=== PATIENT | male | born 1985 | race Caucasian/White ===

== ENCOUNTER 2018-07-18 10:29 | Emergency (ER) | payer MEDICAID, SELFPAY ==
[2018-07-18 10:30] VITALS: BP 116/81; PULSE 82; RESP 16; TEMP 36.7; O2SAT 98; BMI 22.1
[2018-07-18] MEDS: Naproxen 500 MG Tablet PO (11:19)
--- NOTE | 2018-07-18 11:33 | ED.VISSUMM ---
- ER Visit Summary Date of Service: 07/18/18 Chief Complaint: Right thumb pain paresthesia History of Present Illness: The patient is a 33 M [id number] presented increasing right thumb and paresthesia past week. 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 No falls or direct injuries. No previous similar symptoms in the past. No history of acute kidney injury or gastric ulcers. Physical Examination: General: Alert and oriented ?3, no acute distress HEENT: Normocephalic, atraumatic. Moist mucosa membranes Neck: supple, nontender. Negative Spurling's. Cardiovascular: Regular rate and rhythm, no murmurs Respiratory: Normal breath sounds, symmetric, no distress Abdomen: Soft, nontender, nondistended Extremities: Right upper extremity: No elbow pain, negative Tinel's. Wrist examination mild positive Tinel's negative Phalen's. Negative Dulce's of the thumb. Decreased basket hand braider strength of the hand. Neuro: no focal neurological deficits. Test Results: [] Emergency Department Course and Treatment: Patient exam concerns for carpal tunnel syndrome with decreased basket hand braider strength due to paresthesias to the thumb, will provide a thumb spica for rest. Started on naproxen NSAID therapy. Given follow-up with orthopedics. Patient did not want to file as Worker's Comp at this time. Treatment Plan: [] Disposition: Discharge Impression: Right carpal tunnel syndrome This note was generated with [employer] dictation software. It may contain incorrect words, spelling, and punctuation that were not noted in review of the chart prior to signing ED Disposition - Plan for ED Patient: Disposition: Home or Assisted Living Chief Complaint: Upper Extremity Injury Diagnosis: Right carpal tunnel syndrome Instructions: ED Carpal Tunnel Prescriptions: Naproxen [Naprosyn] 500 mg PO BID PRN #20 tablet Referrals: Care Physician,No Primary [Primary Care Provider] - Karla Estrella DO [STAFF PHYSICIAN] - 3-5 Days
--- NOTE | 2018-07-18 11:36 | ED.DCSUM_ITS ---
- ER Visit Summary Date of Service: 07/18/18 Chief Complaint: Right thumb pain paresthesia History of Present Illness: The patient is a 33 M [id number] presented increasing right thumb and paresthesia past week. 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 No falls or direct injuries. No previous similar symptoms in the past. No history of acute kidney injury or gastric ulcers. Physical Examination: General: Alert and oriented ?3, no acute distress HEENT: Normocephalic, atraumatic. Moist mucosa membranes Neck: supple, nontender. Negative Spurling's. Cardiovascular: Regular rate and rhythm, no murmurs Respiratory: Normal breath sounds, symmetric, no distress Abdomen: Soft, nontender, nondistended Extremities: Right upper extremity: No elbow pain, negative Tinel's. Wrist examination mild positive Tinel's negative Phalen's. Negative Dulce's of the thumb. Decreased electrical engineering technologist strength of the hand. Neuro: no focal neurological deficits. Test Results: [] Emergency Department Course and Treatment: Patient exam concerns for carpal tunnel syndrome with decreased electrical engineering technologist strength due to paresthesias to the thumb, will provide a thumb spica for rest. Started on naproxen NSAID therapy. Given follow-up with orthopedics. Patient did not want to file as Worker's Comp at this time. Treatment Plan: [] Disposition: Discharge Impression: Right carpal tunnel syndrome This note was generated with [employer] dictation software. It may contain incorrect words, spelling, and punctuation that were not noted in review of the chart prior to signing ED Disposition - Plan for ED Patient: Disposition: Home or Assisted Living Chief Complaint: Upper Extremity Injury Diagnosis: Right carpal tunnel syndrome Instructions: ED Carpal Tunnel Prescriptions: Naproxen [Naprosyn] 500 mg PO BID PRN #20 tablet Referrals: Care Physician,No Primary [Primary Care Provider] - Karla Estrella DO [STAFF PHYSICIAN] - 3-5 Days
== END 2018-07-18 11:36 | disposition home or self-care (01) ==
PROVIDERS: Emergency Provider Emergency Medicine
DX: G56.01 Carpal tunnel syndrome, right upper limb (principal); K21.9 Gastro-esophageal reflux disease without esophagitis; Z72.0 Tobacco use
CPT/HCPCS: 99283

== ENCOUNTER → 2018-08-11 15:11 | Outpatient (CLI) | payer MEDICAID, SELFPAY ==
--- NOTE | 2018-08-11 15:13 | RAD_ITS ---
STUDY: X-RAY - RIGHT HAND REASON FOR EXAM: Male, 33 years old. Pain TECHNIQUE: 3 view(s) of the hand. COMPARISON: None. FINDINGS: Normal radiocarpal articulation. Normal distal radioulnar joint. Normal visualized carpal bones. Normal carpal articulations Normal carpometacarpal articulation of the thumb. Normal second through fifth carpometacarpal joints. Normal metacarpi. Normal metacarpophalangeal joint of the thumb. Normal interphalangeal joint of the thumb. Normal proximal and distal phalanges of the thumb. Normal metacarpophalangeal joints of the second through fifth fingers. Normal proximal and distal interphalangeal joints of the second through fifth fingers. Normal phalanges of the second through fifth fingers. The soft tissue structures are unremarkable. RAD/Hand Min 3 Views IMPRESSION: Normal x-ray examination of the hand. Electronically Signed: Renzo Bosch MD at 14:57 EDT , Service support ,
== END ==
PROVIDERS: Referring Provider Physician Assistant; Visit Provider Physician Assistant
DX: M79.641 Pain in right hand (principal)
CPT/HCPCS: 73130

== ENCOUNTER 2019-07-17 13:00 | Emergency (ER) | payer MEDICAID, SELFPAY ==
[2019-07-17 13:01] VITALS: BP 136/83; PULSE 71; RESP 16; TEMP 36.4; O2SAT 97; BMI 24.3
--- NOTE | 2019-07-17 13:18 | ED.DCSUM_ITS ---
History of Present Illness Chief Complaint: GI Bleed Informant: Patient Onset: Days Current Severity: Mild Narrative: Patient complains complaining of intermittent rectal bleeding for days that he has a history of the same for over 7 years, he is been seen in the past by outpatient providers gastroenterology or surgeries had a colonoscopy he was told at one point time that he could have inflammatory bowel disease such as Crohn's or ulcerative colitis, he did not follow-up with his outpatient providers. He usually simply waits until the bleeding goes away he presents the em department today because he is indicates he is in between primary care providers and does not have a physician for which she can follow-up he is eating and drinking well he has no other complaints other than report the third toe right foot is slightly irritated no trauma he would like a referral to have that toe checked Past Medical History - Allergies and Home Meds Allergies/Adverse Reactions: Allergies No Known Allergies Allergy (Verified 08/11/18 15:07) Primary Care Physician: Care Physician,No Primary [Primary Care Provider] - Past Medical History: - - Includes all of the above Smoking Status: Current every day smoker Review of Systems General: Denies: Chills, Fever, Sweats Eyes: Denies: Visual changes - bilaterally, Diplopia ENT: Denies: Rhinorrhea, Sore throat Cardiovascular: Denies: Chest pain, Palpitations Respiratory: Denies: Dyspnea, Cough, Dyspnea on exertion Gastrointestinal: Reports: Hematochezia. Denies: Abdominal pain, Nausea, Vomiting, Diarrhea, Melena Genitourinary: Denies: Dysuria, Hematuria, Frequency Musculoskeletal: Denies: Back pain, Extremity Pain Skin: Denies: Rash, Wounds Neurological: Denies: Headache, Weakness, Numbness Physical Exam Vital Signs/Narrative: Vital Signs Temp Pulse Resp BP Pulse Ox 07/17/19 13:01 97.5 F L 71 16 136/83 H 97 General: Well nourished, Well developed, No Acute Distress Head: Normocephalic, Atraumatic Eyes: Perrl, EOMI ENT: Moist mucous membranes, No rhinorrhea Neck: Supple, Nontender Cardiovascular: Regular rate, Regular rhythm, No murmurs Respiratory: No distress, CTA bilaterally, Chest nontender Abdomen: Soft, Nontender, Nondistended, Normal bowel sounds Back: Nontender, Normal Inspection Extremities: Nontender, No edema Skin: Normal color, No rash Neurological: Alert, Oriented x3, Cranial nerves II-XII grossly intact, Normal Strength, Normal Sensation Psychological: Normal affect, Normal Mood Diagnostic/Tx/Re-eval - Medical Decision Making His physical exam is unremarkable his vital signs are normal, he refused rectal exam, the right third toe there may be a small callus involving the skin there is no signs of infection or trauma and he assures me is had no trauma had a long conversation with the patient, I discussed the lung differential with him, we discussed rectal exam, he declined breast exam declined any type of an ED work- up declined labs blood tests etc. he simply wanted the referral, at this time he is referred to primary care, and [place] [facility] on-call and to podiatry and he will return for change in symptoms Home stable declined ED work-up Impression final intermittent rectal bleeding ED Disposition - Plan for ED Patient: Instructions: RECTAL BLEED, Stable Referrals: Care Physician,No Primary [Primary Care Provider] - Leif Ryder [NON-STAFF] - Howard Sheppard MD [STAFF PHYSICIAN] - Deion Piedra DPM [STAFF PHYSICIAN] -
== END 2019-07-17 13:42 | disposition home or self-care (01) ==
LOC: ED 13:28
PROVIDERS: Emergency Provider Emergency Medicine
DX: K62.5 Hemorrhage of anus and rectum (principal); F17.200 Nicotine dependence, unspecified, uncomplicated
CPT/HCPCS: 99282

== ENCOUNTER → 2019-07-22 14:41 | Outpatient (CLI) | payer MEDICAID, SELFPAY ==
[2019-07-22 14:31] VITALS: BMI 24.3
[2019-07-22 15:02] LABS: Hematocrit 43.1 % (40-54); Hemoglobin 14.1 g/dL (13.0-16.5); Mean Corp Hgb Conc 32.7 g/dL (32-36); Mean Corpuscular Hgb 29.1 pg (27.0-32.0); Mean Corpuscular Volume 88.9 fL (80-94); Mean Platelet Vol. 9.3 fl (6.2-12.0); Platelet Count 222 K/mm3 (150-450); RBC Distribution Width CV 12.2 % (11.6-14.6); Red Blood Count 4.85 M/mm3 (4.6-6.2); White Blood Count 5.9 K/mm3 (4.4-11.0)
[2019-07-22 15:16] LABS: Iron 108 ug/dL (65-175); Iron Binding Capacity,Total 348 ug/dL (250-450)
== END ==
PROVIDERS: Referring Provider Surgery; Visit Provider Surgery
DX: K62.5 Hemorrhage of anus and rectum (principal)
CPT/HCPCS: 36415; 83540; 83550; 85027

== ENCOUNTER 2019-07-26 09:46 | Day surgery (SDC) | payer MEDICAID, SELFPAY ==
[2019-07-22 14:31] VITALS: BMI 24.3
[2019-07-26] VITALS (7 sets, daily range): BP systolic 92–117; BP diastolic 45–66; PULSE 16–77; RESP 15–16; TEMP 36.4–36.9; O2SAT 99–100; BMI 21.0
[2019-07-26] MEDS: Lactated Ringers 1,000 ML 100 ML IV ×2 (10:19→12:04)
--- NOTE | 2019-07-26 10:19 | PCM.HP.BLA ---
Problem List (1) Rectal bleeding Status: Acute History and Physical Date of Admission: 07/26/19 Intake Vital Signs 07/22/19 Body Mass Index (BMI) 24.3 07/22/19 Height 5 ft 8 in 07/22/19 Weight: 160 lb 07/22/19 Body Mass Index (BMI) 24.3 07/22/19 Blood Pressure 111/76 07/22/19 Blood Pressure Location Rt brachial 07/22/19 Respiratory Rate 16 07/22/19 Pulse Rate 69 07/22/19 Pulse Source Monitor 07/22/19 Temperature 98.5 F 07/22/19 Temperature Source Oral 07/22/19 Pulse Ox 95 07/22/19 Oxygen Delivery Method room air Intake Visit Reasons: [facility] ER FU Rectal Bleeding Engineering Drawings Checker Required: No Is patient in pain?: No Allergies No Known Allergies Allergy (Verified 07/22/19 14:31) Medications Naproxen [Naprosyn] 500 mg PO BID PRN #20 tab 07/18/18 [Rx Confirmed 07/22/19] Omeprazole [Prilosec] 20 mg PO DAILY 07/18/18 [History Confirmed 07/22/19] PFSH Medical History Fatigue (Acute) Bleeding (Acute) Acid reflux (Acute) Abdominal pain (Acute) Sleep apnea (Acute) Arthritis (Acute) Back pain (Acute) Bloody stool (Acute) Crohn's disease (Acute) Asthma (Acute) Hemorrhoids (Acute) Surgical History H/O colonoscopy (Acute) History of tonsillectomy (Acute) Family History Mother Breast cancer Social History (Updated 07/22/19 @ 15:14 by Howard Sheppard MD) Smoking Status: Current every day smoker second hand exposure: Yes alcohol intake: never substance use type: does not use caffeine: Yes what type of physical activity do you participate in: walking frequency: 5-6 times per week HPI HPI HPI: ALIYAH CANTU, is a 34 M who presents to the office today for HPI HPI Surgical H&P: Yes HPI: ALIYAH CANTU, is a 34 M who presents to the office today for rectal bleeding. The patient reports that he has been having dark and bright red blood per rectum. The patient notes that he had a colonoscopy in 2011 in which bleeding was found he never followed up. He said last week he had several episodes of dark and bright red blood. He came to the emergency room but refused rectal exam or work-up. He says he has been having weight loss and abdominal cramping as well. ROS General General: Yes weight change (Weight loss) and fatigue Musc Musculoskeletal: Yes back problems and arthritis Cardio Cardiovascular: No murmur, pacemaker, heart disease, atrial fibrillation, high blood pressure, heart attack, heart stent, palpitations, shortness of breat with exertion or chest pain Psych Psychiatric: No depression or anxiety Resp Respiratory: No shortness of breath, Yes sleep apnea, No cough, No COPD, No asthma, No emphysema, No wheezing Gastro Gastrointestinal: Yes abdominal pain, No nausea or vomiting, No diarrhea, No constipation, Yes blood in stool, Yes acid reflux, Yes hemorrhoids, No ulcers, No gallbladder problem, No black,tarry stools James Hematologic: No blood thinners, Yes bleeding Exam Const General: cooperative Orientation: alert, oriented x3 Resp Effort & Inspection: normal respiratory effort Auscultation: clear to auscultation bilaterally Cardio Rate: regular rate Rhythm: regular rhythm Heart Sounds: no murmurs GI Inspection: non-distended Palpation: soft, nontender Assessment & Plan Problems 1. Rectal bleeding K62.5 Plan The patient is having bright and dark blood per rectum. He reports weight loss as well. I recommend EGD and colonoscopy. I will also check a CBC and iron studies. I explained endoscopy in detail to the patient. I explained the risks including but not limited to stroke or heart attack with anesthesia, perforation of the GI tract, bleeding, infection. I explained that any of these could necessitate further emergency surgery. The patient understands and all questions were answered sufficiently. The patient wishes to proceed with procedure. Howard Sheppard MD Pager: [facility] [address] [place] [address], [address] [place] [address] Office:
--- NOTE | 2019-07-26 11:43 | OP.ENDO_ITS ---
07/26/2019 No Primary Care Physician Re : Upper GI endoscopy procedure for aCrson Clifton Dear Care Physician This procedure was performed on Friday, July 26, 2019. My impressions and recommendations are as follows: Impressions : - Normal esophagus. - Normal stomach. - Normal examined duodenum. - No specimens collected. Recommendations : - Discharge patient to home. - Resume previous diet. - Continue present medications. My findings are described in the full procedure note, which is enclosed. If I can be of further assistance, please feel free to contact me at Doctor phone number(s): , Work: . Sincerely, Howard Sheppard MD 07/26/2019 11:42:57 AM This report has been signed electronically.
--- NOTE | 2019-07-26 11:44 | OP.ENDO_ITS ---
07/26/2019 No Primary Care Physician Re : Colonoscopy procedure for Carson Clifton Dear Care Physician This procedure was performed on Friday, July 26, 2019. My impressions and recommendations are as follows: Impressions : - The entire examined colon is normal on direct and retroflexion views. - No specimens collected. Recommendations : - Discharge patient to home. - Resume previous diet. - Continue present medications. - Repeat colonoscopy at age 49 for screening purposes. My findings are described in the full procedure note, which is enclosed. If I can be of further assistance, please feel free to contact me at Doctor phone number(s): , Work: . Sincerely, Howard Sheppard MD 07/26/2019 11:44:30 AM This report has been signed electronically.
== END 2019-07-26 12:56 | disposition home or self-care (01) ==
LOC: EN 09:48 → AC 09:50
PROVIDERS: Family Provider Family Medicine; PCP Family Medicine; Referring Provider Surgery; Visit Provider Surgery
PROC: 0DJD8ZZ Inspection of Lower Intestinal Tract, Via Natural or Artificial Opening Endoscopic (ICD-10-PCS; CPT 45378; principal; 2019-07-26 10:55)
DX: K92.1 Melena (principal); K21.9 Gastro-esophageal reflux disease without esophagitis; F17.200 Nicotine dependence, unspecified, uncomplicated
CPT/HCPCS: 43235; 45378; J7120; J2405

== ENCOUNTER 2020-06-21 11:45 | Emergency (ER) | payer MEDICAID, SELFPAY ==
[2019-07-26 10:12] VITALS: BMI 21.0
[2020-06-21 11:46] VITALS: BP 122/73; PULSE 95; RESP 16; TEMP 36.4; O2SAT 98; BMI 24.3
--- NOTE | 2020-06-21 11:58 | ED.DCSUM_ITS ---
- ER Visit Summary Date of Service: 06/21/20 Chief Complaint: Cough, sinus infection, headache History of Present Illness: The patient is a 35 M who presents with cough, sore throat, sinus infection headache. Symptoms started yesterday. He states he feels some scratchiness in his throat. He has had a slightly productive cough as well. He has a lot of nasal congestion. He also had a headache last night. He admitted to some stomachache but it only lasted about an hour. He took some Tylenol at home. No documented fevers. He does admit to some body aches and sweats. No exposure to anybody with coronavirus. He is a smoker. Physical Examination: Vital signs reviewed. HEENT exam unremarkable. Heart is regular rate and rhythm without murmurs. Lungs are clear to auscultation. Abdomen is soft and nontender. Extremities reveal no edema. Skin exam normal. Neurologic exam normal. Test Results: Coronavirus test will be sent out Emergency Department Course and Treatment: The patient overall looks well. His vital signs are normal. He will have a coronavirus test which we will send out. I will give him Mucinex D for his symptoms at home. He will follow-up with his PCP. Treatment Plan: [] Disposition: Discharge Impression: URI This note was generated with [employer] dictation software. It may contain incorrect words, spelling, and punctuation that were not noted in review of the chart prior to signing ED Disposition - Plan for ED Patient: Disposition: Home or Assisted Living Instructions: ED Upper Resp Infec No Abx Tx Prescriptions: Guaifenesin/Pseudoephedrne HCl [Mucinex D ER 600-60 mg Tablet] 1 ea PO BID #14 tab.er.12h Transmission Status: Pending to [facility]30 Referrals: Deion Pro MD [Primary Care Provider] -
== END 2020-06-21 12:15 | disposition home or self-care (01) ==
LOC: ED 12:09
PROVIDERS: Emergency Provider Emergency Medicine; PCP Family Medicine
DX: J06.9 Acute upper respiratory infection, unspecified (principal); F17.200 Nicotine dependence, unspecified, uncomplicated
CPT/HCPCS: 87635; 99282; C9803; U0003

== ENCOUNTER 2022-08-12 14:42 | Emergency (ER) | payer MEDICAID, SELFPAY ==
[2022-08-12 14:43] VITALS: BP 149/72; PULSE 99; RESP 14; TEMP 36.2; O2SAT 99; BMI 26.6
--- NOTE | 2022-08-12 15:28 | EDS_ITS ---
HPI History of Present Illness Chief Complaint: Abscess Narrative Narrative: 37-year-old male with rectal pain x2 weeks. He states he believes he has a hemorrhoid. He was seen in urgent care this week and was referred to Dr. Osuna. The concern was a thrombosed hemorrhoid. Dr. Osuna states that it was not a thrombosed hemorrhoid and recommended a cream that was topical for him. He states he is not getting relief from this. He describes sharp pain in his rectum when he tries to defecate. He denies any black or bloody stools. Denies trauma. He does state that when he tries to urinate it is difficult and he gets a lot of rectal spasms. He has no history of prostate issues. He denies black or bloody stools. PFSH PFSH Medical History Abdominal pain Acid reflux Arthritis Asthma Back pain Bleeding Bloody stool Crohn's disease Fatigue Hemorrhoids Sleep apnea Allergy/AdvReac Type Severity Reaction Status Date / Time No Known Allergies Allergy Verified 08/12/22 14:43 Family History Mother Breast cancer Surgical History H/O colonoscopy History of tonsillectomy Social History Smoking Status: Current every day smoker tobacco type: cigarettes second hand exposure: Yes alcohol intake: never substance use type: does not use caffeine: Yes what type of physical activity do you participate in: walking frequency: 5-6 times per week EXAM Physical Exam Const Vital Signs: 08/12/22 14:43 Temperature 97.2 F L Temperature Source Temporal Pulse Rate 99 Respiratory Rate 14 Blood Pressure 149/72 H Blood Pressure Mean 97 Pulse Ox 99 Oxygen Delivery Method Room Air Positive well nourished General Appearance ED: NAD HEENT Reports moist mucous membranes Eyes PERRL and EOMs intact bilaterally Neck no lymphadenopathy Resp normal respiratory effort Auscultation: Negative for rales, rhonchi or wheezes Cardio regular rate and regular rhythm GI normal to inspection, nondistended, normoactive bowel sounds Narrative: Tenderness to palpation of the left knee area normal rectal area and into the left gluteal fold. No focal abscess is noted. No cellulitic change. Neuro oriented x3 and CN's II-XII intact bilaterally Sensorium / Orientation: alert Psych mental status grossly normal Skin no rashes or lesions noted and no wounds MDM MDM MDM Narrative Medical decision making narrative: Patient presenting with rectal pain. This does appear to be a longstanding issue which is chronic and intermittent. He has had colonoscopies performed as an outpatient in which she states he had biopsies which showed it was not Crohn's disease but was told that it could return and could be Crohn's disease. He had a colonoscopy in [address] Ramirez which showed inflammation. No biopsies were taken at that point. Patient saw Dr. Osuna earlier this week and was put on a topical cream for hemorrhoids. On examination I do not see any visible hemorrhoids and especially do not see a thrombosed hemorrhoid. I obtained blood work and his CBC and BMP are normal. Urinalysis is negative for infection. CT of the abdomen pelvis with IV contrast shows concern for proctitis. I spoke with Dr. Thomas who is on-call for GI and he reviewed the CT and noted that in his history he has had some information. He stated that the patient would need follow-up and could see him in follow-up. He recommended hydrocortisone suppositories 30 mg IN 3 times daily x21 days and following this to start mesalamine suppositories 1000 mg twice daily. He will be given BNO suppositories to help with his pain. Return precautions are discussed. Dr. Thomas did request an ANCA be tested prior to discharge and this was ordered. This will not return today. Impression: 1. Rectal pain 2. Proctitis Lab Data Attestation: I reviewed the patient's lab results. Labs: Laboratory Results - last 24 hr 08/12/22 08/12/22 08/12/22 15:36 15:36 15:45 WBC 6.5 RBC 5.12 Hgb 15.0 Hct 44.5 MCV 86.9 MCH 29.3 MCHC 33.7 RDW Std Deviation 40.4 RDW Coeff of Key[place] 12.8 Plt Count 271 MPV 9.6 Immature Gran % (Auto) 0.300 Neut % (Auto) 52.4 Lymph % (Auto) 33.4 [place] % (Auto) 9.4 Eos % (Auto) 3.1 Baso % (Auto) 1.4 H Absolute Neuts (auto) 3.4 Absolute Lymphs (auto) 2.16 Nucleated RBC % 0 Sodium 140 Potassium 3.7 Chloride 104 Carbon Dioxide 29.0 Anion Gap 7 BUN 15 Creatinine 0.76 Estim Creat Clear Calc 127.50 Est GFR (MDRD) Af Amer 146 Est GFR (MDRD) Non-Af 121 BUN/Creatinine Ratio 19.6 Glucose 96 Calcium 9.2 Urine Color Yellow Urine Clarity Clear Urine pH 6.0 Ur Specific [place] 1.015 Urine Protein Negative Urine Glucose (UA) Normal Urine Ketones Negative Urine Occult Blood Negative Urine Nitrite Negative Urine Bilirubin Negative Urine Urobilinogen Normal Ur Leukocyte Esterase 25 H Urine RBC 0 SEEN Urine WBC 0-5 SEEN Ur Squamous Epith Cells 0-5 SEEN Urine Bacteria 0 SEEN Urine Mucus 2+ Radiography Diagnostic Testing: Clinical Impression(s) from Imaging Studies Abdomen/Pelvis CT 08/12/22 15:56 IMPRESSION: Nonspecific concentric thickening of the knutson of the anorectal junction of indeterminate etiology or clinical significance possibly due to proctitis. Incompletely distended markedly thick-walled bladder of uncertain significance possibly due to cystitis. Clinical correlation recommended No evidence for small bowel obstruction or other acute abnormality with other findings as above Electronically Signed: Deion Brown MD at 16:29 EDT Reading Location ID and State: [facility] / [place] , Service support , Discharge Plan Triage Chief Complaint: Abscess ED Provider: Rasheed Burns Dx/Rx/DC Orders Primary Care Provider: Care Physician,No Primary Referrals: Deion Pro MD [Non-Staff] -
[2022-08-12] MEDS: Ondansetron 4 MG/2 ML Vial IV (15:45)
[2022-08-12] MEDS: Morphine 4 MG/ML Syringe IV (15:45)
--- NOTE | 2022-08-12 15:56 | CT_ITS ---
STUDY: CT ABDOMEN AND PELVIS WITH CONTRAST REASON FOR EXAM: Male, 37 years old. rectal pain RADIATION DOSAGE (If Supplied By Facility): CTDIvol = ( 12.81 ) mGy, DLP = ( 943.53 ) mGycm TECHNIQUE: Transaxial images were obtained from the dome of the diaphragm to the symphysis pubis without oral contrast. IV 100mL Isovue-300 was administered. Sagittal and coronal images were reconstructed. Individualized dose optimization techniques were used for this CT. COMPARISON: None. FINDINGS: The visualized lung bases are unremarkable. The visualized portions of the heart are within normal limits. Nonspecific fatty infiltrated liver. There are 2 tiny hypoattenuated densities in the right lobe which is too small to characterize but most likely cysts. Bile ducts are nondilated.. Normal gallbladder and extrahepatic biliary system. Normal spleen. Normal pancreas. Normal bilateral adrenal glands. Normal right kidney. Normal left kidney. Normal visualized stomach. Normal small intestine. Normal colon. The appendix is visualized and appears normal. There is concentric thickening of the knutson at the anorectal junction of uncertain clinical significance. Normal abdominal aorta. Normal inferior vena cava. Normal retroperitoneum. Poorly distended thick-walled bladder of uncertain significance although may be consistent with cystitis. Clinical correlation recommended in this regard Tiny subcentimeter bilateral inguinal nodes likely benign. Normal osseous structures. CT/Abdomen/Pelvis W IV Cont ONLY IMPRESSION: Nonspecific concentric thickening of the knutson of the anorectal junction of indeterminate etiology or clinical significance possibly due to proctitis. Incompletely distended markedly thick-walled bladder of uncertain significance possibly due to cystitis. Clinical correlation recommended No evidence for small bowel obstruction or other acute abnormality with other findings as above Electronically Signed: Deion Brown MD at 16:29 EDT ,
[2022-08-12 16:01] LABS: Bacteria 0 SEEN /hpf (None Seen)
[2022-08-12 16:03] LABS: Anion Gap 7 (5-15); BUN 15 mg/dL (7-18); BUN/Creat Ratio 19.6 RATIO (10-20); Calcium,Total 9.2 mg/dL (8.5-10.1); Chloride 104 mmol/L (98-107); Creatinine, Serum 0.76 mg/dL (0.70-1.30); EST Glomerular Filtration Rate 121 mL/min (>60); Est Glom Filt Rate - Afr Amer 146 mL/min (>60); Glucose 96 mg/dL (74-106); Potassium 3.7 mmol/L (3.5-5.1); Sodium Level 140 mmol/L (136-145)
[2022-08-12 16:05] LABS: Absolute Lymphocyte Count 2.16 X10^3/uL (0.83-4.51); Absolute Neutrophil Count 3.4 X10^3/uL (2.0-7.7); Basophil# 0.09 X10^3/uL; Basophil% 1.4 % (0-1); Eosinophils% 3.1 % (0-5); Hematocrit 44.5 % (40-54); Lymphocyte # 2.16 X10^3/ul (0.83-4.51); Lymphocyte % 33.4 % (19-41); Mean Corp Hgb Conc 33.7 g/dL (32-36); Mean Corpuscular Hgb 29.3 pg (27.0-32.0); Mean Corpuscular Volume 86.9 fL (80-94); Mean Platelet Vol. 9.6 fl (6.2-12.0); Monocyte# 0.61 X10^3/uL; Monocyte% 9.4 % (0-10); NRBC Flagged by Analyzer 0 % (0-5); Neutrophil # 3.39 X10^3/uL (2.7-7.7); Neutrophil % 52.4 % (47-70); Platelet Count 271 K/mm3 (150-450); RBC Distribution Width CV 12.8 % (11.6-14.6); RBC Distribution Width SD 40.4 fl (35.1-43.9); Red Blood Count 5.12 M/mm3 (4.6-6.2); White Blood Count 6.5 K/mm3 (4.4-11.0)
[2022-08-12 16:08] LABS: Color, Urine Yellow (Yellow); Glucose, Dipstick Normal (Normal); Ketone-Dipstick Negative (Negative); Leukocyte Esterase-Dipstick 25 /ul (Negative); Nitrite-Dipstick Negative (Negative); Occult Blood-Urine Negative /ul (Negative); Protein-Dipstick Negative (Negative); Specific Gravity, Urine 1.015 (1.002-1.030); Urine Bilirubin Dipstick Negative (Negative); Urine Clarity Clear (Clear); Urine Urobilinogen Normal (Normal)
[2022-08-12 16:41] LABS: Mucous, Urine 2+ /hpf (<or=2+); Red Blood Cells-Urine 0 SEEN /hpf (0-5); Squamous Epithelial Cells - UA 0-5 SEEN /hpf (0-5); White Blood Cells 0-5 SEEN /hpf (0-5)
[2022-08-14 14:09] LABS: Cytoplasmic Ab (C-ANCA) <1:20 titer (Neg:<1:20)
[2022-08-14 16:27] LABS: Perinuclear Ab (P-ANCA) <1:20 titer (Neg:<1:20)
== END 2022-08-12 17:47 | disposition home or self-care (01) ==
PROVIDERS: Emergency Provider Student in an Organized Health Care Education/Training Program; Visit Provider Student in an Organized Health Care Education/Training Program
DX: K62.89 Other specified diseases of anus and rectum (principal); G47.30 Sleep apnea, unspecified; F17.210 Nicotine dependence, cigarettes, uncomplicated
CPT/HCPCS: 74177; 80048; 81001; 85025; 86256; 96374; 96375; 99281; 99282; J7030; Q9967; A4216; J2405

== ENCOUNTER → 2022-11-18 | Outpatient (CLI) | payer MEDICAID, SELFPAY ==
[2022-11-18 16:34] LABS: Absolute Lymphocyte Count 1.82 X10^3/uL (0.83-4.51); Absolute Neutrophil Count 3.5 X10^3/uL (2.0-7.7); Basophil# 0.09 X10^3/uL; Basophil% 1.5 % (0-1); Eosinophil# 0.16 X10^3/uL; Eosinophils% 2.6 % (0-5); Hematocrit 45.9 % (40-54); Lymphocyte # 1.82 X10^3/ul (0.83-4.51); Lymphocyte % 29.6 % (19-41); Mean Corp Hgb Conc 32.7 g/dL (32-36); Mean Corpuscular Hgb 28.6 pg (27.0-32.0); Mean Corpuscular Volume 87.4 fL (80-94); Mean Platelet Vol. 10.1 fl (6.2-12.0); Monocyte# 0.58 X10^3/uL; Monocyte% 9.4 % (0-10); NRBC Flagged by Analyzer 0 % (0-5); Neutrophil # 3.48 X10^3/uL (2.7-7.7); Neutrophil % 56.6 % (47-70); Platelet Count 280 K/mm3 (150-450); RBC Distribution Width CV 13.1 % (11.6-14.6); RBC Distribution Width SD 41.8 fl (35.1-43.9); Red Blood Count 5.25 M/mm3 (4.6-6.2); White Blood Count 6.2 K/mm3 (4.4-11.0)
[2022-11-18 17:00] LABS: Erythrocyte Sedimentation Rate 15 mm/hr (0-20)
[2022-11-18 18:09] LABS: ALB/GLOB Ratio 1.1 RATIO (0.9-2.4); AST(SGOT) 22 U/L (15-37); Alanine Aminotransfer ALT/SGPT 36 U/L (16-61); Albumin, Serum 4.1 g/dL (3.2-5.0); Alkaline Phosphatase 94 U/L (45-117); Anion Gap 9 (5-15); BUN 18 mg/dL (7-18); BUN/Creat Ratio 20.8 RATIO (10-20); CRP < 2.90 mg/L (0.0-3.0); Calcium,Total 9.1 mg/dL (8.5-10.1); Chloride 106 mmol/L (98-107); Creatinine, Serum 0.87 mg/dL (0.70-1.30); EST Glomerular Filtration Rate 104 mL/min (>60); Est Glom Filt Rate - Afr Amer 126 mL/min (>60); Globulin 3.9 g/dL (2.2-4.2); Glucose 124 mg/dL (74-106); LDH 232 U/L (87-241); Potassium 3.7 mmol/L (3.5-5.1); Sodium Level 142 mmol/L (136-145)
[2022-11-20 14:09] LABS: Anti-Centromere B Ab <0.2 AI (0.0-0.9); Anti-Chromatin <0.2 AI (0.0-0.9); Anti-Jo <0.2 AI (0.0-0.9); Anti-Scleroderma-70 AB <0.2 AI (0.0-0.9); RNP Ab 0.3 AI (0.0-0.9); SJOGREN'S Anti-SS-A test < 0.2 AI (0.0-0.9); SJOGREN'S Anti-SS-B test < 0.2 AI (0.0-0.9); Smith Ab <0.2 AI (0.0-0.9)
[2022-11-20 15:08] LABS: Endomysial Antibody IgA Negative (Negative)
[2022-11-20 18:46] LABS: Anti-dsDNA Ab 3 IU/mL (0-9)
[2022-11-21 20:04] LABS: Immunoglobulin A 114 mg/dL (90-386); t-Transglutaminase IgA <2 U/mL (0-3)
[2022-11-25 15:08] LABS: Alpha-1-Globulins 0.2 g/dL (0.0-0.4); Alpha-2-Globulins 0.8 g/dL (0.4-1.0); Gamma Globulin 1.3 g/dL (0.4-1.8); Immunoglobulin A 125 mg/dL (90-386); Immunoglobulin E 15 IU/mL (6-495); Immunoglobulin G 1254 mg/dL (603-1613); Immunoglobulin M 163 mg/dL (20-172); PROEL- TOTAL PROTEIN 7.4 g/dL (6.0-8.5); QNTFERON TB Mitogen Value > 10.00 IU/mL (.); QNTFERON TB Nil Value 0.05 IU/mL (.); QNTFERON TB1+ Ag Value 0.08 IU/mL (.); QNTFERON TB2+ Ag Value 0.12 IU/mL (.)
[2022-11-25 23:20] LABS: Cytoplasmic Ab (C-ANCA) <1:20 titer (Neg:<1:20); Perinuclear Ab (P-ANCA) <1:20 titer (Neg:<1:20); QNTIFERON TB Positive Criteria Negative (Negative)
== END | disposition home or self-care (01) ==
PROVIDERS: Referring Provider Internal Medicine Gastroenterology; Visit Provider Internal Medicine Gastroenterology
DX: K62.89 Other specified diseases of anus and rectum (principal)
CPT/HCPCS: 36415; 80053; 82784; 82785; 83516; 83615; 84165; 85025; 85652; 86140; 86225; 86235; 86255; 86256; 86334; 86480

== ENCOUNTER 2024-01-10 12:13 | Emergency (ER) | payer SELFPAY ==
[2024-01-10 12:14] VITALS: BP 131/91; PULSE 85; RESP 16; TEMP 36.1; O2SAT 100; BMI 27.9
--- NOTE | 2024-01-10 12:29 | ED.VIS.BACK ---
HPI <CHASTITY Ferreira - Last Filed: 01/10/24 13:59> History of Present Illness Chief Complaint: Back Narrative Narrative: Patient presenting today due to lower left-sided back pain he has had over the past 4 days or so. He reports that he recently moved and has been lifting heavy pieces of furniture into a storage unit. He and his are sleeping on an air mattress which does not provide much support. 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 He does report moderately relief with ibuprofen. He denies any radicular symptoms, leg weakness, injury to his back, bowel/bladder incontinence, saddle paresthesia, history of IV drug use, fever, chills, and urinary symptoms. PFSH <CHASTITY Ferreira - Last Filed: 01/10/24 13:59> [facility] Medical History Abdominal pain Acid reflux Arthritis Asthma Back pain Bleeding Bloody stool Crohn's disease Fatigue Hemorrhoids Sleep apnea Home Medications belladonna alkaloids-opium 16.2 mg-30 mg rectal suppository 1 supp MS BID PRN pain 3 days #12 ea 08/12/22 [Rx Last Taken Unknown] hydrocortisone acetate 30 mg rectal suppository 30 mg MS TID 3 weeks #66 ea 08/12/22 [Rx Last Taken Unknown] mesalamine 1,000 mg rectal suppository 1 g MS BID 3 weeks #42 ea 08/12/22 [Rx Last Taken Unknown] orphenadrine citrate 100 mg tablet,extended release 100 mg PO BID #14 tabs 01/10/24 [Rx Last Taken Unknown] Allergy/AdvReac Type Severity Reaction Status Date / Time No Known Allergies Allergy Verified 01/10/24 12:15 Family History Mother Breast cancer Surgical History H/O colonoscopy History of tonsillectomy Social History Smoking Status: Current every day smoker tobacco type: cigarettes second hand exposure: Yes alcohol intake: never substance use type: does not use caffeine: Yes what type of physical activity do you participate in: walking frequency: 5-6 times per week ROS <CHASTITY Ferreira - Last Filed: 01/10/24 13:59> ROS ED Constitutional Constitutional ED: Denies chills or fever(s) Cardiovascular Cardiovascular: Denies chest pain Respiratory/Chest Respiratory/Chest: Denies cough or dyspnea Gastrointestinal Gastrointestinal: Denies abdominal pain, nausea or vomiting Genitourinary Genitourinary ED: Denies dysuria, hematuria or urinary frequency Musculoskeletal Musculoskeletal: Reports back pain Integumentary Denies rash Neurologic Neurologic: Denies paresthesias or weakness EXAM <CHASTITY Ferreira - Last Filed: 01/10/24 13:59> Physical Exam Const Vital Signs: 01/10/24 12:14 01/10/24 13:02 Temperature 97.0 F L 97.8 F Temperature Source Temporal Pulse Rate 85 62 Respiratory Rate 16 15 Blood Pressure 131/91 H 134/77 H Blood Pressure Mean 104 96 Pulse Ox 100 99 Oxygen Delivery Method Room Air Positive well nourished, well developed and no apparent distress General Appearance ED: well developed HEENT Reports normocephalic and head/scalp atraumatic Mouth ED: Yes moist mucous membranes normal Eyes PERRL and EOMs intact bilaterally Neck full ROM and supple Chest Wall inspection of chest normal Resp normal respiratory effort and clear to auscultation bilaterally Cardio regular rate and regular rhythm GI soft to palpation, non-tender, non-distended and no masses Back/Spine normal ROM and normal to inspection Back/Spine Narrative: Tenderness to palpation to the left thoracic and lumbar paraspinal muscles. No midline spinal tenderness. No step-offs. Extremity normal to inspection and full ROM Neuro oriented x3, CN's II-XII intact bilaterally, moves all extremities, no focal motor deficits and no sensory deficits noted Sensorium / Orientation: awake and alert Motor Exam: strength 5/5 throughout Deep Tendon Reflexes: Rt Patellar (L4): 2+ and Lt Patellar (L4): 2+ Deep Tendon Reflexes Back: Rt Patellar (L4): 2+ and Lt Patellar (L4): 2+ Psych mental status grossly normal and thought process normal Skin no rashes or lesions noted and no wounds <Dr. Manjinder Lunsford DO - Last Filed: 01/10/24 12:50> Physical Exam Const Vital Signs: 01/10/24 12:14 01/10/24 13:02 Temperature 97.0 F L 97.8 F Temperature Source Temporal Pulse Rate 85 62 Respiratory Rate 16 15 Blood Pressure 131/91 H 134/77 H Blood Pressure Mean 104 96 Pulse Ox 100 99 Oxygen Delivery Method Room Air [facility] <CHASTITY Ferreira - Last Filed: 01/10/24 13:59> [facility] Narrative Medical decision making narrative: Patient presenting today with mid left-sided back pain. He is tender to his left thoracic and lumbar paraspinal muscles, consistent with muscular strain. He has been moving a lot of heavy furniture and lifting heavy boxes over the last several days. No symptoms of cauda equina syndrome, low suspicion for spinal abscess, I do not feel emergent imaging is indicated at this time. I did offer analgesia here, he reports that he is getting good relief with ibuprofen and can take this at home. I will write a prescription for a muscle relaxer and he can continue NSAIDs at home. He is requesting a work note, this will be given and he will be discharged home in stable condition. He is comfortable with plan. <Dr. Manjinder Lunsford, DO - Last Filed: 01/10/24 12:50> [facility] Treatment and Re-Evaluation Narrative: I have personally performed a face to face assessment of the patient and have reviewed the LUPE Note. I performed a substantive portion of the visit including all aspects of the following. My shannon findings include: History: Patient presents with back pain that has been getting worse over the past few days. Patient states she was doing a lot of lifting recently. Patient states he was moving and lifting a lot of boxes recently. 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 Patient states his pain is mainly over the left lower lumbar area. Patient denies any radiation of the pain. Patient denies any bowel or bladder changes. Patient denies any saddle anesthesia. Exam: Musculoskeletal exam reveals tenderness and spasm over the left lumbar paraspinal muscles. There is no bony crepitance or step-off. There is no midline tenderness. Range of motion was limited in all motions of the lumbar spine secondary to pain. Strength is 5/5 bilaterally in lower extremities. There are no sensory deficits noted. Deep tendon reflexes are 2/4 bilaterally in the lower extremities. Patient ambulated without difficulty. Medical Decision Making: Patient was advised that this most likely muscular strain. Patient was given a note for work. Patient was instructed to follow-up with his primary care physician in 5 to 7 days. Patient understood and was agreeable with the plan. All questions were answered. Discharge Plan Triage Chief Complaint: Back ED Midlevel Provider: Cecilia Lundberg ED Provider: Manjinder Lunsford Dx/Rx/DC Orders Clinical Impression: Back strain Instructions: Back Safety: Lifting, ED Back Sprain/Strain Prescriptions: New orphenadrine citrate 100 mg tablet extended release 100 mg PO BID Qty: 14 0RF No Action belladonna alkaloids-opium 16.2-30 mg suppository 1 supp MS BID PRN (Reason: pain) 3 Days Qty: 12 0RF hydrocortisone acetate 30 mg suppository 30 mg MS TID 21 Days Qty: 66 0RF mesalamine 1,000 mg suppository 1 g MS BID 21 Days Qty: 42 0RF Stand Alone Forms: ED Work / School Excuse Primary Care Provider: Care Physician,No Primary Referrals: Care Physician,No Primary [Primary Care Provider] - Activity Restrictions/Additional Instructions: Please follow-up with your PCP. Return for any worsening of your symptoms. You will take 600 mg ibuprofen every 6 hours. Disposition Disposition: Home, Self Care Discharge Date/Time: 01/10/24 13:03
[2024-01-10 13:02] VITALS: BP 134/77; PULSE 62; RESP 15; TEMP 36.6; O2SAT 99
== END 2024-01-10 13:03 | disposition home or self-care (01) ==
PROVIDERS: Emergency Provider Emergency Medicine; Visit Provider Emergency Medicine
DX: S39.012A Strain of muscle, fascia and tendon of lower back, initial encounter (principal); G47.30 Sleep apnea, unspecified; F17.210 Nicotine dependence, cigarettes, uncomplicated; X58.XXXA Exposure to other specified factors, initial encounter
CPT/HCPCS: 99283